=== PATIENT | female | born 1985 | race Hispanic/Latino ===

== ENCOUNTER 2024-04-27 00:13 | Emergency (ER) | payer SELFPAY ==
[2024-04-27] MEDS ORDERED: Albuterol 2.5 MG (3 mL) NEB ONE (00:17)
[2024-04-27 00:35] LABS: #Basophils 0.1 thou/uL (0.0-0.2); #Eosinphils 1.8 thou/uL (0.0-0.7); #Lymphocytes 2.3 thou/uL (1.20-3.40); #Monocytes 0.8 thou/uL (0.11-0.59); %Basophils 0.9 % (0.0-1.0); %Monocytes 6.8 % (0.0-10.0); %Neutrophils 58.3 % (42.0-75.0); Hematocrit 46.3 % (36.0-47.0); Hemoglobin 14.6 g/dL (12.0-16.0); Mean Corpuscular HGB CONC 31.6 g/dL (32.0-36.0); Mean Corpuscular Hemoglobin 29.1 pg (27.0-31.0); Mean Corpuscular Volume 92.2 fl (78.0-98.0); Mean Platelet Volume 7.7 fL (7.4-10.4); Platelet Count 261 10x3/uL (130-400); RBC Distribution Width 12.4 % (11.5-14.5); Red Blood Cell (RBC) Count 5.02 mill/uL (4.20-5.40)
[2024-04-27] MEDS ORDERED: methylPREDNISolone Sod Succ/PF 125 MG/2 ML VIAL ONE (00:35)
[2024-04-27] MEDS ORDERED: Magnesium 2 GM/50 ML BAG (IN WATER) ONE (00:35)
[2024-04-27] MEDS ORDERED: Famotidine/PF 20 mg/2ml Vial ONE (00:36)
[2024-04-27 00:54] LABS: Troponin I Less than 0.010 ng/mL (< 0.028)
[2024-04-27 00:57] LABS: Anion Gap 13 mmol/L (10-20); BUN (Urea Nitrogen) 15 mg/dL (7.0-18.7); Calc. Creatinine Clearance 0 mL/min (70-130); Carbon Dioxide 23 mmol/L (22-29); Chloride 106 mmol/L (98-107); Estimated GFR 113; Glucose 100 mg/dL (70-105); Potassium 4.3 mmol/L (3.5-5.1); Sodium 138 mmol/L (136-145)
== END 2024-04-27 01:43 | disposition home or self-care (01) ==
LOC: MADERS 00:13
DX: J45.901 Unspecified asthma with (acute) exacerbation (principal)
CPT/HCPCS: 71045; 80048; 84484; 85025; 93005; 96365; 96375; J2930; J3475; J3490; J7611

== ENCOUNTER 2024-10-24 02:44 | Emergency (ER) | payer SELFPAY ==
[2024-10-24] MEDS ORDERED: Sodium Chloride 0.9% 1,000 ML ONE (03:14)
[2024-10-24] MEDS ORDERED: methylPREDNISolone Sod Succ/PF 125 MG/2 ML VIAL ONE (03:14)
[2024-10-24 10:27] LABS: %Lymphocytes 27.7 % (21.0-51.0); %Neutrophils 56.5 % (42.0-75.0); Hematocrit 42.2 % (36.0-47.0); Hemoglobin 13.3 g/dL (12.0-16.0); Mean Corpuscular HGB CONC 31.7 g/dL (32.0-36.0); Mean Corpuscular Hemoglobin 28.8 pg (27.0-31.0); Mean Platelet Volume 8.7 fL (7.4-10.4); Platelet Count 221 10x3/uL (130-400); RBC Distribution Width 12.4 % (11.5-14.5); Red Blood Cell (RBC) Count 4.63 mill/uL (4.20-5.40)
[2024-10-24 10:28] LABS: #Basophils 0.1 thou/uL (0.0-0.2); #Eosinophils 0.7 thou/uL (0.0-0.7); #Lymphocytes 2.5 thou/uL (1.20-3.40); #Monocytes 0.4 thou/uL (0.11-0.59); #Neutrophils 5.1 thou/uL (1.40-6.50); %Basophils 1.5 % (0.0-1.0); %Eosinophils 7.8 % (0.0-10.0); %Monocytes 6.5 % (0.0-10.0)
[2024-10-24 10:29] LABS: Potassium 4.1 mmol/L (3.5-5.1); Sodium 139 mmol/L (136-145)
[2024-10-24 10:30] LABS: Albumin 3.3 g/dL (3.1-4.5); Anion Gap 13 mmol/L (10-20); BUN (Urea Nitrogen) 9 mg/dL (7.0-18.7); Bilirubin, Total 0.3 mg/dL (0.3-1.2); Calc. Creatinine Clearance 0 mL/min (70-130); Carbon Dioxide 18 mmol/L (22-29); Chloride 112 mmol/L (98-107); Estimated GFR 119; Globulin 2.7 g/dL (2.4-3.5); Glucose 105 mg/dL (70-105)
[2024-10-24 10:31] LABS: ALT (SGPT) 23 U/L (Less than 34); AST (SGOT) 15 U/L (11-34); Alkaline Phosphatase 65 U/L (40-110)
[2024-10-24 10:32] LABS: BHCG - Serum Negative (NEGATIVE); Pregs Control Background? CLEAR/WHITE (CLR/WHITE); Pregs Control Bar Appear? YES (CONTROL BAR)
[2024-10-24 10:40] LABS: Troponin I Less than 0.010 ng/mL (< 0.028)
== END 2024-10-24 05:08 | disposition home or self-care (01) ==
LOC: MADERS 02:44
DX: J45.901 Unspecified asthma with (acute) exacerbation (principal); F17.210 Nicotine dependence, cigarettes, uncomplicated
CPT/HCPCS: 71046; 80053; 83605; 84484; 84703; 85025; 87400; 87426; 96374; J2919; J7030